=== PATIENT | male | born 1970 | race Caucasian/White ===

== ENCOUNTER 2020-02-02 23:46 | Emergency (ER) | payer OTHER, SELFPAY ==
[2020-02-02 23:51] VITALS: BP 177/101; PULSE 77; RESP 16; TEMP 36.8; O2SAT 100; BMI 41.5
--- NOTE | 2020-02-03 03:51 | ED_ITS ---
HPI - Abdominal Pain General Chief Complaint: Abdominal Pain Stated Complaint: Abd pain Time Seen by Provider: 02/03/20 03:44 Source: patient Mode of arrival: ambulatory Limitations: no limitations History of Present Illness HPI narrative: Patient comes in complaining of abdominal pain right upper lower quadrant. Patient states it has been ongoing for almost a month, however over the last week the pain has gradually been getting worse and more constant. Patient states that most of his family members have had cholecystectomies, patient is concerned that he has gallstones. At this moment, patient states kaushik t he has mild pain, however right now he is in a comfortable position has no pain. Pain Consistency: intermittent Location: RUQ Migration to: no migration Associated symptoms: nausea Related Data Allergies Allergy/AdvReac Type Severity Reaction Status Date / Time cetirizine [From Zyrtec] Allergy Swelling Verified 02/02/20 23:58 diphenhydramine Allergy Swelling Verified 02/02/20 23:58 [From Benadryl] Review of Systems Review of Systems Constitutional : No Weight loss, No Fever, No Chills, No Night Sweats, No Fatigue, No Malaise ENT/Mouth : No Hearing loss, No Ear Pain, No Nasal Congestion, No Sinus Pain, No Hoarseness, No sore throat, No Rhinorrhea, No Swallowing Difficulty Eyes: No Eye Pain, No Swelling, No Redness, No Foreign Body, No Discharge, No Vision Changes Cardiovascular : No Chest Pain, No SOB, No Dyspnea on Exertion, No Orthopnea, No Edema, No Palpitations Respiratory : No Cough, No Sputum, No Wheezing, No Smoke Exposure, No Dyspnea Gastrointestinal : Nausea, No Vomiting, No Diarrhea, No Constipation, right upper quadrant pain Pain, No Hematochezia, No Melena Genitourinary : no irregular bleeding, No Dysuria, No Urinary Frequency, No Hematuria, No Urinary Incontinence, No Urgency, No Flank Pain, No Urinary Flow Changes, No Hesitancy Musculoskeletal : No joint pain, No Myalgias, No Joint Swelling Skin : No Skin Lesions, No rash Neuro : No Weakness, No Numbness, No Paresthesias, No Loss of Consciousness, No Dizziness, No Headache Psych : No Anxiety/Panic, No Depression, No SI/HI/AH/VH, No Social Issues, Heme/Lymph: No Bruising, No Bleeding,No Lymphadenopathy Endocrine : No Polyuria, No Polydipsia, No Temperature Intolerance Physical Exam Vital Signs: Vital Signs: Vital Signs Temp Pulse Resp BP Pulse Ox 02/03/20 06:30 72 14 142/97 H 97 02/03/20 05:14 97.1 F 78 16 172/107 H 98 02/02/20 23:51 98.2 F 77 16 177/101 H 100 Body Mass Index 41.5 Appearance: Alert. Oriented X3. No acute distress. Eyes: Pupils equal, round and reactive to light. ENT: Pharynx normal. Neck: Normal inspection. Neck supple. No lymph nodes noted. No crepitus CVS: Normal heart rate and rhythm. Pulses normal. Normal S1 and S2 Respiratory: No respiratory distress. Breath sounds normal. No Wheezing. No rales Abdomen: Soft with tenderness to palpation on the right upper quadrant, no epigastric pain. No rigidity. No distention. good BS x4 Skin: Skin warm and dry. Normal skin color. Normal skin turgor. Extremities: No lower extremity edema. No lower extremity edema. No Lacerations. No Rash Neuro: Oriented X 3. No motor deficit. No sensory deficit. Moving all extermities. No slurred speech. Course Reevaluation(s) Reevaluation #1: patient was asked multiple times if he would like any pain medications also for medications, patient declined. I discussed with the patient his labs and the ultrasound. MDM - Abdominal Pain Lab Data Result diagrams: 02/03/20 05:06 02/03/20 05:06 Labs: Lab Results 02/03/20 02/03/20 Range/Units 05:06 05:06 WBC 10.7 (4.8-10.8) X10*3/uL RBC 4.93 (4.60-5.80) X10*6/uL Hgb 14.0 (14.0-18.0) g/dl Hct 42.2 (42-52) % MCV 85.6 (80-98) fL MCH 28.4 (27.0-33.0) pg MCHC 33.2 (31.0-36.0) g/dl RDW 13.1 (11.0-16.0) % Plt Count 360 (160-400) X10*3/uL MPV 8.3 L (9.4-12.4) fL Immature Gran % (Auto) 0.3 (0.0-0.4) % Neut % (Auto) 74.2 H (45-73) % Lymph % (Auto) 15.2 L (20-40) % [place] % (Auto) 5.8 (2-11) % Eos % (Auto) 3.8 (0-4) % Baso % (Auto) 0.7 (0-2) % Lymph # (Auto) 1.6 (1.2-4.9) X10*3/uL [place] # (Auto) 0.6 (0.1-1.2) X10*3/uL Eos # (Auto) 0.4 (0.0-0.4) X10*3/uL Baso # (Auto) 0.1 (0.0-0.2) X10*3/uL Abs Immat Gran (auto) 0.03 (0.00-0.03) X10*3/uL Absolute Neuts (auto) 7.9 (2.0-8.3) X10*3/uL Absolute Nucleated RBC 0.000 (0.0-0.012) X10*3/uL Nucleated RBC % (auto) 0.0 (0.0-0.2) /100WBC Sodium 141 (135-145) mmol/L Potassium 3.8 (3.3-5.1) mmol/l Chloride 106 (96-108) mmol/L Carbon Dioxide 28 (22-29) mmol/L Anion Gap 11 L (12-20) BUN 8 L (9-16) mg/dL Creatinine 1.13 (0.5-1.4) mg/dL Estim Creat Clear Calc 99.2 Estimated GFR > 60 Random Glucose 95 (60-115) mg/dL Calcium 9.0 (8.4-10.2) mg/dL Total Bilirubin 0.9 (0.0-1.0) mg/dL Direct Bilirubin 0.3 (0.0-0.5) mg/dL AST 19 (5-37) U/L ALT 29 (0-40) U/L Alkaline Phosphatase 171 H (39-117) U/L Total Protein 7.3 (6.5-8.0) g/dL Albumin 4.2 (3.5-5.0) g/dL Lipase 30 (8-78) U/L Imaging Data US - abdomen: Radiologist's impression: 1. No acute hepatobiliary findings. 2. Gallbladder polyp measuring 0.5 cm. 3. Hepatic steatosis. 4. Approximately 1 cm left renal cyst with peripheral calcification. Discharge Plan Discharge Clinical Impression: Abdominal pain Qualifiers: Abdominal location: right upper quadrant Qualified Code(s): R10.11 - Right upper quadrant pain Patient Disposition: Home, Self-Care Instructions: Abdominal Pain (ED) Additional Instructions: please follow-up with her primary care physician and with Gastroenterology. If you have any worsening or new symptoms, please return to the emergency room or call [facility] Past Medical History Medical History BPPV (benign paroxysmal positional vertigo) HTN (hypertension) Hyperlipemia Kidney disease Migraine Surgical History Stented coronary artery Social History Social History Advance Directives: No Advance Directives Information Provided: No
--- NOTE | 2020-02-03 03:53 | US_ITS ---
EXAMINATION: US ABDOMEN LIMITED CLINICAL INFORMATION: Right upper quadrant pain. COMPARISON: None TECHNIQUE: Real-time imaging of the right upper quadrant abdominal viscera. FINDINGS: PANCREAS: The visualized proximal portion of the pancreas is unremarkable. The distal portion is obscured secondary to overlying bowel gas. LIVER: The liver demonstrates increased echogenicity consistent with fatty infiltration, with focal sparing noted near the gallbladder fossa. No focal lesion or intrahepatic biliary duct dilatation. GALLBLADDER: Physiologically distended. No gallstones or wall thickening identified. There is a 0.5 cm gallbladder wall polyp. COMMON BILE DUCT: Normal in caliber measuring 0.4 cm in diameter. RIGHT KIDNEY: No hydronephrosis. No renal calculi identified. There is an approximately 1 cm lower pole cyst with peripheral calcification. The kidney measures 12.3 cm in maximum dimension. FREE FLUID: None. IMPRESSION: 1. No acute hepatobiliary findings. 2. Gallbladder polyp measuring 0.5 cm. 3. Hepatic steatosis. 4. Approximately 1 cm left renal cyst with peripheral calcification.
--- NOTE | 2020-02-03 04:38 | PC.NURSE ---
pt taken to ultra sound for right upper quad abd pain
[2020-02-03 05:10] LABS: MANUAL DIFF FLAG NO
[2020-02-03 05:11] LABS: Basophils Absolute Auto 0.1 X10*3/uL (0.0-0.2); Basophils Percent Auto 0.7 % (0-2); Eosinophils Absolute Auto 0.4 X10*3/uL (0.0-0.4); Eosinophils Percent Auto 3.8 % (0-4); Hematocrit 42.2 % (42-52); Imm Gran Abs Auto 0.03 X10*3/uL (0.00-0.03); Imm Gran Pct Auto 0.3 % (0.0-0.4); Lymphocytes Absolute Auto 1.6 X10*3/uL (1.2-4.9); Lymphocytes Percent Auto 15.2 % (20-40); Mean Corpuscular HGB Conc 33.2 g/dl (31.0-36.0); Mean Corpuscular Hemoglobin 28.4 pg (27.0-33.0); Mean Corpuscular Volume 85.6 fL (80-98); Mean Platelet Volume 8.3 fL (9.4-12.4); Monocytes Absolute Auto 0.6 X10*3/uL (0.1-1.2); Monocytes Percent Auto 5.8 % (2-11); Neutrophils Absolute Auto 7.9 X10*3/uL (2.0-8.3); Neutrophils Percent Auto 74.2 % (45-73); Platelet Count 360 X10*3/uL (160-400); Red Blood Count 4.93 X10*6/uL (4.60-5.80); Red Cell Distribution Width 13.1 % (11.0-16.0); White Blood Count 10.7 X10*3/uL (4.8-10.8)
[2020-02-03 05:14] VITALS: BP 172/107; PULSE 78; RESP 16; TEMP 36.2; O2SAT 98
[2020-02-03 05:50] LABS: Alanine Aminotransferase 29 U/L (0-40); Albumin Level 4.2 g/dL (3.5-5.0); Alkaline Phosphatase 171 U/L (39-117); Anion Gap 11 (12-20); Aspartate Amino Transferase 19 U/L (5-37); Bilirubin Direct 0.3 mg/dL (0.0-0.5); Bilirubin Total 0.9 mg/dL (0.0-1.0); Blood Urea Nitrogen 8 mg/dL (9-16); Carbon Dioxide 28 mmol/L (22-29); Chloride 106 mmol/L (96-108); Creatinine Clr Calc Pharmacy 99.2; Estimated Glomerular Filt Rate > 60; Glucose Random 95 mg/dL (60-115); Lipase 30 U/L (8-78); Potassium 3.8 mmol/l (3.3-5.1); Sodium 141 mmol/L (135-145); Total Protein 7.3 g/dL (6.5-8.0)
[2020-02-03 06:30] VITALS: BP 142/97; PULSE 72; RESP 14; O2SAT 97
== END 2020-02-03 07:30 | disposition home or self-care (01) ==
PROVIDERS: Emergency Provider Emergency Medicine
DX: R10.11 Right upper quadrant pain (principal); I10 Essential (primary) hypertension; Z79.899 Other long term (current) drug therapy
CPT/HCPCS: 36415; 76705; 80048; 80076; 83690; 85025; 99283; 99284

== ENCOUNTER → 2020-06-20 14:06 | Outpatient (BNVA) | payer OTHER, SELFPAY | PROVIDERS: PCP Internal Medicine; Visit Provider Internal Medicine Cardiovascular Disease | DX: I25.119 Atherosclerotic heart disease of native coronary artery with unspecified angina pectoris (principal); I10 Essential (primary) hypertension; E78.5 Hyperlipidemia, unspecified | CPT/HCPCS: 93005; 99202 ==

== ENCOUNTER → 2020-06-24 09:44 | Outpatient (REF) | payer OTHER, SELFPAY ==
--- NOTE | 2020-06-24 09:48 | CA_ITS ---
Acquisition Time: 2020-06-24 10:05:13 Total Exercise Time: 00:08:01 Test Indications: I25.119 Medications: SEE CHART Protocol: VERONICA Max HR: 150 BPM 87% of Pred: 172 BPM Max BP: 148/086 mmHG Max Work Load: 10.1 METS Exercise tress test using Veronica protocol, total of 8 min 1 sec. METS 10.10 and TAPHR up to 87%. Pt tolerated well, denies any anginal sx. EKG without any arrhythmias, no ischemic changes seen during exercise or in recovery period. Normotensive response to exercise. Test reviewed with Dr. Humphrey Referred By: Faustino Smith Overread By:
== END ==
LOC: HO.CARD 09:44
PROVIDERS: Visit Provider Internal Medicine Cardiovascular Disease
DX: I25.119 Atherosclerotic heart disease of native coronary artery with unspecified angina pectoris (principal)
CPT/HCPCS: 93016; 93017; 93018

== ENCOUNTER 2020-09-20 11:47 | Outpatient (REF) | payer OTHER, SELFPAY ==
[2020-09-20 12:40] LABS: Hemoglobin 14.2 g/dl (14.0-18.0); Mean Corpuscular Hemoglobin 28.5 pg (27.0-33.0); Mean Corpuscular Volume 86.3 fL (80-98); Mean Platelet Volume 8.9 fL (9.4-12.4); Platelet Count 373 X10*3/uL (160-400); Red Blood Count 4.98 X10*6/uL (4.60-5.80); Red Cell Distribution Width 12.9 % (11.0-16.0); White Blood Count 9.7 X10*3/uL (4.8-10.8)
[2020-09-20 13:10] LABS: Alanine Aminotransferase 26 U/L (0-40); Albumin Level 4.3 g/dL (3.5-5.0); Alkaline Phosphatase 207 U/L (39-117); Aspartate Amino Transferase 18 U/L (5-37); Bilirubin Direct 0.3 mg/dL (0.0-0.5); Bilirubin Total 0.7 mg/dL (0.0-1.0); Cholesterol 140 mg/dL; HDL Cholesterol 34 mg/dL; LDL Cholesterol Calculated 70 mg/dl; Total Protein 7.4 g/dL (6.5-8.0); Triglycerides 181 mg/dL
[2020-09-20 13:32] LABS: Thyroid Stimulating Hormone 0.48 uIU/mL (0.32-4.0)
[2020-09-20 13:52] LABS: Folate 10.4 ng/mL (> or = 4.0); Vitamin B12 534 pg/mL (200-900)
[2020-09-24 11:52] LABS: Vitamin D 25-OH, D2 <4 ng/mL; Vitamin D 25-OH, D3 21 ng/mL; Vitamin D 25-OH, Total 21 ng/mL (30-100)
== END 2020-09-20 11:48 | disposition home or self-care (01) ==
LOC: HO.LAB 11:47
PROVIDERS: PCP Internal Medicine; Visit Provider Internal Medicine
DX: E78.5 Hyperlipidemia, unspecified (principal); I10 Essential (primary) hypertension; R42 Dizziness and giddiness
CPT/HCPCS: 36415; 80061; 80076; 82306; 82607; 82746; 84443; 85027

== ENCOUNTER 2020-10-26 08:52 | Outpatient (REF) | payer OTHER, SELFPAY ==
[2020-11-01 18:21] LABS: Transglutaminase Ab IgG 1 U/mL; Transglutaminase IgA 1 U/mL
== END 2020-10-26 08:53 | disposition home or self-care (01) ==
LOC: HO.LAB 08:52
PROVIDERS: PCP Internal Medicine; Visit Provider Nurse Practitioner Family
DX: K57.90 Diverticulosis of intestine, part unspecified, without perforation or abscess without bleeding (principal); R74.8 Abnormal levels of other serum enzymes; K58.9 Irritable bowel syndrome, unspecified
CPT/HCPCS: 36415; 83516; 99202

== ENCOUNTER → 2020-11-30 08:46 | Outpatient (BNVA) | payer OTHER, SELFPAY | PROVIDERS: PCP Internal Medicine; Referring Provider Internal Medicine; Visit Provider Nurse Practitioner Family | DX: K57.90 Diverticulosis of intestine, part unspecified, without perforation or abscess without bleeding (principal); K58.1 Irritable bowel syndrome with constipation | CPT/HCPCS: 99212 ==

== ENCOUNTER → 2021-01-31 08:12 | Outpatient (BNVA) | payer OTHER, SELFPAY | PROVIDERS: PCP Internal Medicine; Visit Provider Nurse Practitioner Family ==